=== PATIENT | male | born 1965 | race Caucasian/White ===

== ENCOUNTER 2018-02-03 11:13 | Emergency (ER) | payer OTHER ==
[2018-02-03] MEDS ORDERED: Bacitracin Zinc 1 Packet ONE (11:41)
== END 2018-02-03 11:46 | disposition home or self-care (01) ==
LOC: BURERS 11:13
DX: S01.01XA Laceration without foreign body of scalp, initial encounter (principal); I10 Essential (primary) hypertension; J45.909 Unspecified asthma, uncomplicated; Z79.899 Other long term (current) drug therapy; W01.10XA Fall on same level from slipping, tripping and stumbling with subsequent striking against unspecified object, initial encounter
CPT/HCPCS: 12001